=== PATIENT | male | born 1990 | race Caucasian/White ===

== ENCOUNTER 2020-12-17 09:22 | Emergency (ER) | payer SELFPAY ==
[~2020-12-17] VITALS: Ht 170.2 cm; Wt 83.5 kg
[2020-12-17] MEDS ORDERED: ONDANSETRON 4 MG/2 ML VIAL IV ONE (09:45)
[2020-12-17] MEDS ORDERED: HYDROMORPHONE 1 MG/1 ML DISP.SYRIN IV ONE (09:45)
[2020-12-17] MEDS ORDERED: IV NORMAL SALINE 1000 ML BAG IV ONE ×2 (09:45→10:00)
--- NOTE | 2020-12-17 09:45 | NUR ---
DR RUIZ AT BEDSIDE FOR EVAL.
[2020-12-17] MEDS ORDERED: IV NORMAL SALINE 250 ML IV ONE (10:00)
[2020-12-17] MEDS ORDERED: IOHEXOL 300MG/ML 100 ML INFUS..BTL ONE (10:00)
[2020-12-17] MEDS ORDERED: SWABABLE VALVE TRANSFER SET EA MC ONE (10:00)
[2020-12-17] MEDS ORDERED: HYDROMORPHONE 1 MG/1 ML DISP.SYRIN ONE (10:04)
[2020-12-17] MEDS ORDERED: ONDANSETRON 4 MG/2 ML VIAL ONE (10:06)
--- NOTE | 2020-12-17 10:10 | NUR ---
Pt signed consent for IV contrasted Ct, placed in the chart.
[2020-12-17 10:13] LABS: BASOPHILS % (AUTO) 0.5 % (0.0-2.0); EOSINOPHILS % (AUTO) 0.5 % (0.0-7.0); HEMATOCRIT 52.4 % (36.7-47.1); HEMOGLOBIN 17.6 g/dL (12.5-16.3); LYMPHOCYTES # (AUTO) 1.8 K/uL (20.0-40.0); LYMPHOCYTES % (AUTO) 20.5 % (20.5-51.5); MEAN CORPUSCULAR HEMOGLOBIN 29.4 uug (23.8-33.4); MEAN CORPUSCULAR HGB CONC 34 g/dL (32.5-36.3); MEAN CORPUSCULAR VOLUME 87.7 fL (73.0-96.2); MONOCYTES # (AUTO) 0.9 K/uL (2.0-10.0); MONOCYTES % (AUTO) 9.7 % (0.0-11.0); NEUTROPHILS # (AUTO) 6.2 K/uL (1.8-8.9); NEUTROPHILS % (AUTO) 68.8 % (38.5-71.5); PLATELET COUNT (AUTO) 339 K/uL (152-348); RED BLOOD CELL COUNT(AUTO) 5.98 MIL/uL (4.06-5.63)
[2020-12-17 10:16] LABS: ETHANOL < 3 MG/DL (0-0)
[2020-12-17 10:24] LABS: CREATININE 0.8 mg/dL (0.6-1.3); POTASSIUM 4.2 mmol/L (3.5-5.1)
[2020-12-17 10:27] LABS: PHOSPHOROUS 1.6 mg/dL (2.5-4.9)
[2020-12-17 10:30] LABS: BILIRUBIN,TOTAL 1.6 mg/dL (0.2-1.0); TOTAL PROTEIN, SERUM 8.6 g/dL (6.4-8.2)
[2020-12-17 10:38] LABS: BILIRUBIN,DIRECT 0.2 mg/dL (0.0-0.2)
[2020-12-17] MEDS ORDERED: NEUTRA PHOS PACKET PO ONE (11:15)
[2020-12-17 11:22] LABS: *BILIRUBIN,URIN NEGATIVE (NEGATIVE); *BLOOD, URINE NEGATIVE (NEGATIVE); *CLARITY,URINE CLEAR (CLEAR); *COLOR,URINE YELLOW (YELLOW); *KETONES,URINE 2+ (NEGATIVE); *UROBILINOGEN,URINE 0.2 E.U./dl (NORMAL); LEUKOCYTE ESTERASE ,URINE NEGATIVE (NEGATIVE); NITRITE, URINE NEGATIVE (NEGATIVE); PH,URINE 6.5 (5.0-8.0); UGLUCOSE NEGATIVE (NEGATIVE)
[2020-12-17] MEDS ORDERED: FAMOTIDINE. 20 MG/2 ML VIAL IV ONE ×2 (11:30→11:37)
[2020-12-17] MEDS ORDERED: MAG HYDROX/AL HYDROX/SIMETH 30 ML LIQUID UDC PO ONE (11:30)
[2020-12-17] MEDS ORDERED: LIDOCAINE VISCUS 2% 15 ML UDC MM ONE (11:30)
[2020-12-17 11:31] LABS: *AMPHETAMINE, URINE NEGATIVE (NEGATIVE); *CANNABINOID, URINE NEGATIVE (NEGATIVE); *COCCAINE, URINE POSITIVE (NEGATIVE); *OPIATE, URINE NEGATIVE (NEGATIVE); *PHENCYCLIDINE SCREEN,URINE NEGATIVE (NEGATIVE)
[2020-12-17] MEDS ORDERED: MAG HYDROX/AL HYDROX/SIMETH 30 ML LIQUID UDC ONE (11:37)
[2020-12-17] MEDS ORDERED: LIDOCAINE VISCUS 2% 15 ML UDC ONE (11:37)
--- NOTE | 2020-12-17 12:46 | NUR ---
IV removed. Catheter intact and site benign. Pressure and 4x4 gauze applied to site. No bleeding noted.
[2020-12-17 12:47] VITALS: BP 115/60
--- NOTE | 2020-12-17 12:47 | NUR ---
Patient discharged to home in stable condition. Written and verbal after care instructions given. Patient verbalizes understanding of instructions. Stressed follow up or return to ER for worsening s/s.
== END 2020-12-17 12:47 | disposition home or self-care (01) ==
LOC: ER 09:22
DX: R10.13 Epigastric pain (principal); K29.20 Alcoholic gastritis without bleeding; E87.2 Acidosis; R11.10 Vomiting, unspecified; E83.39 Other disorders of phosphorus metabolism; K76.0 Fatty (change of) liver, not elsewhere classified; Z98.84 Bariatric surgery status
CPT/HCPCS: 36415; 74177; 80048; 80076; 80307; 80320; 81003; 83690; 83735; 84100; 85025; 96361; 96374; 96375; 99285; J1170; J2405; J3490; Q9967; A4663; G0480; J7030; J7050

== ENCOUNTER 2021-12-29 14:36 | Emergency (ER) | payer SELFPAY ==
[~2021-12-29] VITALS: Ht 170.2 cm; Wt 72.6 kg
[2021-12-29] MEDS ORDERED: IV NORMAL SALINE 1000 ML BAG IV ONE (15:15)
[2021-12-29] MEDS ORDERED: KETOROLAC TROMETHAMINE 30 MG INJ IVP ONE (15:15)
[2021-12-29 15:30] LABS: HEMATOCRIT 46.4 % (36.7-47.1); MEAN CORPUSCULAR HEMOGLOBIN 30.1 uug (23.8-33.4); MEAN CORPUSCULAR VOLUME 87.4 fL (73.0-96.2); PLATELET COUNT (AUTO) 389 K/uL (152-348)
[2021-12-29] MEDS ORDERED: KETOROLAC TROMETHAMINE 30 MG INJ ONE (15:31)
--- NOTE | 2021-12-29 15:38 | NUR ---
PT IS IN ROOM #1B. DR LO EVALUATED THE PT.
[2021-12-29 15:44] LABS: BILIRUBIN,DIRECT 0.4 mg/dL (0.0-0.2); BILIRUBIN,TOTAL 2.4 mg/dL (0.2-1.0); POTASSIUM 3.8 mmol/L (3.5-5.1)
[2021-12-29 16:49] LABS: *BILIRUBIN,URIN 1+ (NEGATIVE); *BLOOD, URINE NEGATIVE (NEGATIVE); *CLARITY,URINE CLEAR (CLEAR); *COLOR,URINE DARK YELLOW (YELLOW); *KETONES,URINE 1+ (NEGATIVE); LEUKOCYTE ESTERASE ,URINE NEGATIVE (NEGATIVE); NITRITE, URINE NEGATIVE (NEGATIVE); PH,URINE 5.5 (5.0-8.0); UGLUCOSE NEGATIVE (NEGATIVE)
[2021-12-29] MEDS ORDERED: MORPHINE SULFATE 4 MG/1 ML DISP.SYRIN ONE ×2 (16:55→18:47)
[2021-12-29] MEDS ORDERED: MORPHINE SULFATE 4 MG/1 ML DISP.SYRIN IV ONE ×2 (17:00→18:45)
[2021-12-29] MEDS ORDERED: HYDROMORPHONE 2 MG/1 ML DISP.SYRIN ONE (20:18)
[2021-12-29] MEDS ORDERED: HYDROMORPHONE 1 MG/1 ML DISP.SYRIN IV ONE (20:30)
[2021-12-29] MEDS ORDERED: OXYC-128 PO (22:00)
[2021-12-29] MEDS ORDERED: URSO300C12 PO (22:00)
[2021-12-29] MEDS ORDERED: PROC-11 PO (22:00)
[2021-12-29 22:18] VITALS: BP 142/73
--- NOTE | 2021-12-29 22:18 | NUR ---
Patient discharged to home in stable condition. Written and verbal after care instructions given. Patient verbalizes understanding of instructions. Stressed follow up or return to ER for worsening s/s. Patient out of ER with steady gait, no acute signs of distress, VSS, all belongings taken, IV site discontinued, instructed not to drive.
== END 2021-12-29 22:19 | disposition home or self-care (01) ==
LOC: ER 14:43
DX: R10.11 Right upper quadrant pain (principal); Z87.442 Personal history of urinary calculi; Z87.19 Personal history of other diseases of the digestive system; Z98.84 Bariatric surgery status; F10.20 Alcohol dependence, uncomplicated
CPT/HCPCS: 36415; 74176; 76705; 80048; 80076; 81003; 83690; 84484; 85025; 93005; 96361; 96374; 96375; 96376; 99285; J1170; J1885; J2270 ×2; J7040; A4663